=== PATIENT | male | born 1980 | race Two or more races ===

== ENCOUNTER 2021-04-14 10:01 | Emergency (ER) | payer MEDICAID, OTHER ==
[~2021-04-14] VITALS: Ht 175.3 cm; Wt 76.2 kg
[2021-04-14 13:18] VITALS: BP 106/70
== END 2021-04-14 15:14 | disposition home or self-care (01) ==
LOC: ER 10:01
DX: Z48.817 Encounter for surgical aftercare following surgery on the skin and subcutaneous tissue (principal)